=== PATIENT | female | born 1955 | race Two or more races ===

== ENCOUNTER 2018-11-14 14:54 | Emergency (ER) | payer MEDICAID ==
[~2018-11-14] VITALS: Ht 154.9 cm; Wt 64.0 kg
[2018-11-14 15:22] VITALS: BP 143/62
== END 2018-11-14 20:42 | disposition home or self-care (01) ==
LOC: EDBD 14:54 → ER 14:54
DX: R51 Headache (principal); R09.81 Nasal congestion; E11.9 Type 2 diabetes mellitus without complications; E78.5 Hyperlipidemia, unspecified
CPT/HCPCS: 70450

== ENCOUNTER 2024-02-17 10:30 | Inpatient (IN) | payer MEDICAID ==
[~2024-02-17] VITALS: Ht 157.5 cm; Wt 65.5 kg
--- NOTE | 2024-02-17 10:50 | ED.PDOC ---
HPI Comments This is a 68-year-old female who comes in with chief complaint of chest pain. The patient states that she was at rest yesterday and developed some pressure- like chest pain that was substernal in nature. She denies any radiation of the pain. The patient was complaining of some shortness for breath as well as nausea. There has been no vomiting or diarrhea. The patient was also having some dizziness and some mild right-sided abdominal pain with the chest pain. Patient has no other complaints at this time. Chief Complaint: Chest Pain Time Seen by MD: 10:31 Reviewed Notes: Nurses Notes, Medications, Allergies (Allergies to penicillin) Allergies: Coded Allergies: Penicillins (Verified Allergy, Unknown, 11/14/18) Uncoded Allergies: PENIC (Allergy, Unknown, 11/14/18) Information Source: Patient Mode of Arrival: Ambulatory Severity: Moderate Timing: Days Duration: Since onset Prehospital treatment: None Location: Substernal Radiation: No Radiation Quality: Squeezing, Pressure Onset: At Rest Cardiac Risk Factors: Family History, Hyperlipidemia, HTN, Diabetes PE Risk Factors: None History of: None Modifying Factors: Nothing Associated Signs and Symptoms: SOB, N/V (Nausea but no vomiting) Past Medical History PAST MEDICAL HISTORY: DM, High Lipids, HTN Surgical History: Cholecystectomy ANIMAL THERAPIST History: No Pertinent ANIMAL THERAPIST History Family History Family History: Family hx of heart margaret Social History Smoker: Non-Smoker Alcohol: Denies ETOH Use Drugs: Denies Drug Use Lives In: Home Constitutional: denies: chills, diaphoresis, fatigue, fever, malaise, sweats, weakness, others EENTM: denies: blurred vision, double vision, ear bleeding, ear discharge, ear drainage, ear pain, ear ringing, eye pain, eye redness, hearing loss, mouth pain, mouth swelling, nasal discharge, nose bleeding, nose congestion, nose pain, photophobia, tearing, throat pain, throat swelling, voice changes, others Respiratory: reports: shortness of breath; denies: cough, hemoptysis, orthopnea, SOB at rest, SOB with excertion, stridor, wheezing, others Cardiovascular: reports: chest pain; denies: dizzy spells, diaphoresis, Dyspnea on exertion, edema, irregular heart beat, left arm pain, lightheadedness, palpitations, PND, syncope, others Gastrointestinal: reports: nausea; denies: abdomen distended, abdominal pain, blood streaked bowels, constipated, diarrhea, dysphagia, difficulty swallowing, hematemesis, melena, poor appetite, poor fluid intake, rectal bleeding, rectal pain, vomiting, others Genitourinary: denies: abnormal vagina bleeding, burning, dyspareunia, dysuria, flank pain, frequency, hematuria, incontinence, pain, , vagina discharge, urgency, others Neurological: reports: dizziness; denies: fainting, headache, left sided numbness, left sided weakness, numbness, paresthesia, pre-existing deficit, right sided numbness, right sided weakness, seizure, speech problems, tingling, tremors, weakness, others Musculoskeletal: denies: back pain, gout, joint pain, joint swelling, muscle pain, muscle stiffness, neck pain, others Integumetry: denies: bruises, change in color, change in hair/nails, dryness, laceration, lesions, lumps, rash, wounds, others Allergic/Immunocompromised: denies: Difficulty Healing, Frequent Infections, H gagandeep, Itching, others Hematologic/Lymphatic: denies: anemia, blood clots, easy bleeding, easy bruising, swollen glands, others Endocrine: denies: excessive hunger, excessive sweating, excessive thirst, excessive urination, flushing, intolerance to cold, intolerance to heat, unexplained weight gain, unexplained weight loss, others Psychiatric: denies: anxiety, bipolar disorder, depression, hopeless, panic disorder, schizophrenia, sleepless, suicidal, others Physical Exam General Appearance: No Apparent Distress HEENT: Normal ENT Inspection, Pharynx Normal, TMs Normal Neck: Full Range of Motion, Non-Tender, Normal, Normal Inspection Respiratory: Chest Non-Tender, Lungs Clear, No Accessory Muscle Use, No Respiratory Distress, Normal Breath Sounds Cardiovascular: No Edema, No JVD, No Murmur, No Gallop, Normal Peripheral Pulses, Regular Rate/Rhythm Breast Exam: Deferred Gastrointestinal: No Organomegaly, Non Tender, No Pulsatile Mass, Normal Bowel Sounds, Soft Genitalia: Deferred Pelvic: Deferred Rectal: Deferred Extremities: No calf tenderness, Normal capillary refill, Normal inspection, Normal range of motion, Non-tender, No pedal edema Musculoskeletal : Apperance: Normal Neurologic: Alert, panelboard assembler II-XII nml as Tested, No Motor Deficits, Normal Affect, Normal Mood, No Sensory Deficits Cerebellar Function: Normal Reflexes: Normal Skin: Dry, Normal Color, Warm Lymphatic: No Adenopathy EKG EKG : Pulse Rate (adult): 55 Cardiac Rhythm: NSR Block: None ST: Nonsp (Low voltage) Was a procedure done? Was a procedure done?: No CP Differential Dx Differential Diagnosis: Angina, [place], Pulmonary Embolus Differential Diagnosis: CHF Differential Diagnosis: Pericarditis X-Ray, Labs, Meds, VS Vital Signs Date Time Temp Pulse Resp B/P (MAP) Pulse Ox O2 Delivery O2 Flow Rate FiO2 02/17/24 15:41 98.3 59 17 149/258 (222) 100 98.3 02/17/24 11:48 61 02/17/24 11:48 98.4 61 17 150/59 (89) 99 98.4 02/17/24 11:35 58 02/17/24 10:51 55 02/17/24 10:50 86 02/17/24 10:33 97.3 50 17 181/53 (95) 100 Lab Test 02/17/24 13:58 02/17/24 11:59 02/17/24 11:51 02/17/24 10:38 Range/Units Troponin I High Sensitivity 6 4 5 </=34 ng/L Urine Color Light-yellow Yellow Urine Clarity Clear Clear Urine pH 7.5 5.0-9.0 Urine Specific [place] 1.009 1.001-1.035 Urine Protein Negative Negative Urine Ketones Negative Negative Urine Blood 1+ H Negative /uL Urine Nitrite Negative Negative Urine Bilirubin Negative Negative Urine Urobilinogen Normal Negative mg/dL Urine Leukocyte Esterase 3+ Negative /uL Urine RBC 12 0 - 4 /hpf Urine WBC 7 0 - 5 /hpf Urine Squamous Epithelial Cells Few <5 /hpf Urine Bacteria Few H None Seen /hpf Urine Glucose Normal Normal mg/dL White Blood Count 4.5 4.4-10.8 10^3/uL Red Blood Count 3.84 L 4.0-5.20 10^6/uL Hemoglobin 12.6 12.2-16.2 g/dL Hematocrit 37.0 36.0-46.0 % Mean Corpuscular Volume 96.4 80.0-100.0 fL Mean Corpuscular Hemoglobin 32.9 H 28.0-32.0 pg Mean Corpuscular Hemoglobin Concent 34.2 32.0-36.0 g/dL Red Cell Distribution Width 13.2 11.8-14.3 % Platelet Count 249 140-450 10^3/uL Mean Platelet Volume 7.5 6.9-10.8 fL Neutrophils (%) (Auto) 46.0 37.0-80.0 % Lymphocytes (%) (Auto) 44.8 10.0-50.0 % Monocytes (%) (Auto) 5.6 0.0-12.0 % Eosinophils (%) (Auto) 2.8 0.0-7.0 % Basophils (%) (Auto) 0.8 0.0-2.0 % Neutrophils # (Auto) 2.1 1.6-8.6 10 ^3/uL Lymphocytes # (Auto) 2.0 0.4-5.4 10 ^3/uL Monocytes # (Auto) 0.3 0-1.3 10 ^3/uL Eosinophils # (Auto) 0.1 0-0.8 10 ^3/uL Basophils # (Auto) 0 0-0.2 10 ^3/uL Nucleated Red Blood Cells 0.1 % Sodium Level 144 136-145 mmol/L Potassium Level 4.1 3.5-5.1 mmol/L Chloride Level 107 98-107 mmol/L Carbon Dioxide Level 29 20-31 mmol/L Anion Gap 8 5-15 Blood Urea Nitrogen 15 9-23 mg/dL Creatinine 0.79 0.550-1.02 mg/dL Glomerular Filtration Rate Calc 80 >90 mL/min BUN/Creatinine Ratio 19.0 10.0-20.0 Serum Glucose 96 74-106 mg/dL Calcium Level 10.4 8.7-10.4 mg/dL Magnesium Level 2.2 1.6-2.6 mg/dL Total Bilirubin 0.6 0.2-1.0 mg/dL Aspartate Amino Transferase (AST) 23 13-40 U/L Alanine Aminotransferase (ALT) 24 7-40 U/L Alkaline Phosphatase 82 46-116 U/L Total Protein 7.1 5.7-8.2 g/dL Albumin 4.6 3.2-4.8 g/dL Current Medications Medications (Trade) Dose Ordered Sig/Ronnie Route Start Time Stop Time Status Last Admin Aspirin 162 mg ONCE ONCE PO 02/17/24 10:45 02/17/24 10:46 DC 02/17/24 11:46 Levofloxacin 50 ml @ 50 mls/hr Q1H IV 02/17/24 16:00 02/17/24 17:59 02/17/24 16:05 The patient's CBC is within normal limits The chemistry panel is within normal limits. The urine test is positive for UTI The patient was given aspirin for the chest pain The patient was also given Levaquin for the UTI The patient was being admitted to the hospitalist at this time Images Reviewed?: Images reviewed and evaluated by me Time of 1ST Reevaluation: 10:50 Reevaluation 1ST: Unchanged Patient Education/Counseling: Diagnosis, Treatment, Prognosis Family Education/Counseling: No Family Present Departure 1 Departure Time of Disposition: 17:37 Impression: Primary Impression: Acute myocardial ischemia Additional Impression: UTI (urinary tract infection) Qualified Codes: N30.00 - Acute cystitis without hematuria Disposition: 09 ADMITTED INPATIENT Admit to: [facility] Condition: Fair Critical Care Note Critical Care Time?: Yes (35 min-critical care time only) Stability Stability form required: Yes Unstable for transfer: Telemetry monitoring (Telemetry monitoring required), ED Physician Assesment (Clinical assesment) Heart Score Heart Score: Heart Score Response (Comments) Value History Moderate Suspicious 1 EKG Normal 0 Age >65 2 Risk Factors >3 or Hx ASHD 2 Troponin Normal limit 0 Total 5 ESME ELI MD Feb 17, 2024 10:50
[2024-02-17 11:03] LABS: Basophils # (auto) 0 10 ^3/uL (0-0.2); Basophils % (auto) 0.8 % (0.0-2.0); Eosinophils # (auto) 0.1 10 ^3/uL (0-0.8); Eosinophils % (auto) 2.8 % (0.0-7.0); Hemoglobin 12.6 g/dL (12.2-16.2); Lymphocytes % (auto) 44.8 % (10.0-50.0); Mean Corpuscular Hemoglobin 32.9 pg (28.0-32.0); Mean Corpuscular Hgb Conc. 34.2 g/dL (32.0-36.0); Mean Corpuscular Volume 96.4 fL (80.0-100.0); Monocytes # (auto) 0.3 10 ^3/uL (0-1.3); Monocytes % (auto) 5.6 % (0.0-12.0); Neutrophils # (auto) 2.1 10 ^3/uL (1.6-8.6); Nucleated Red Blood Cells % 0.1 %; Platelet Count (auto) 249 10^3/uL (140-450); Red Blood Cells 3.84 10^6/uL (4.0-5.20); Red Cell Distribution Width 13.2 % (11.8-14.3); White Blood Cell 4.5 10^3/uL (4.4-10.8)
[2024-02-17 11:25] LABS: Alanine Aminotransferase 24 U/L (7-40); Albumin 4.6 g/dL (3.2-4.8); Alkaline Phosphatase 82 U/L (46-116); Anion Gap 8 (5-15); Aspartate Aminotransferase 23 U/L (13-40); Blood Urea Nitrogen 15 mg/dL (9-23); Carbon Dioxide 29 mmol/L (20-31); Chloride 107 mmol/L (98-107); Glucose 96 mg/dL (74-106); Magnesium 2.2 mg/dL (1.6-2.6); Potassium 4.1 mmol/L (3.5-5.1); Sodium 144 mmol/L (136-145)
[2024-02-17 11:26] LABS: Bilirubin, Total 0.6 mg/dL (0.2-1.0); Total Protein 7.1 g/dL (5.7-8.2)
[2024-02-17 11:40] LABS: Calcium 10.4 mg/dL (8.7-10.4)
[2024-02-17] MEDS: ASPirin 81 mg TAB PO ONE (11:46)
[2024-02-17 12:45] LABS: Urine Bacteria FEW /hpf (None Seen); Urine Blood 1+ /uL (Negative); Urine Clarity Clear (Clear); Urine Color Light-Yellow (Yellow); Urine Protein, UAD Negative (Negative); Urine Specific Gravity 1.009 (1.001-1.035); Urine Squamous Epithelial Cell FEW /hpf (<5); Urine Urobilinogen Normal (Negative); Urine WBC 7 /hpf (0 - 5); Urine pH 7.5 (5.0-9.0)
--- NOTE | 2024-02-17 12:55 | DVH ---
EXAM: XY CHEST PORTABLE Indication: CHEST PAIN Technique: Single frontal view of the chest was obtained Comparison: None FINDINGS: Lines and Tubes: None Lungs: No focal consolidation. Pleura: No effusion. No pneumothorax. Cardiomediastinal contours: Unremarkable Bones: No acute osseous abnormality. IMPRESSION: No acute cardiopulmonary disease.
[2024-02-17] MEDS ORDERED: levoFLOXacin 500MG 100 ML IV ONE (14:15)
[2024-02-17] MEDS: levoFLOXacin 250MG 50 ML IV SCH (16:05)
--- NOTE | 2024-02-17 17:59 | DVHHP2 ---
History of Present Illness Reason for Visit: Chest pain History of Present Illness 68-year-old female with a known history of diabetes mellitus type 2, diet controlled, hypertension, dyslipidemia who initially presented to the hospital with chest pain which is substernal squeezing type without any ideation. Patient's troponins were negative. Patient denies any previous history of known coronary artery disease. Patient's denies any fever cough or phlegm. Cardiovascular: HTN, hyperipidemia Endocrine: Diabetes Past Surgical History: Cholecystectomy Family History: None Smoke: No ALCOHOL: none Review of Systems Review of Systems Twelve review of system are negative besides mentioned above. Allergies: Coded Allergies: Penicillins (Verified Allergy, Unknown, 11/14/18) Uncoded Allergies: PENIC (Allergy, Unknown, 11/14/18) Medications Current Medications Medications Dose Ordered Sig/Ronnie Route Start Time Stop Time Status Last Admin Dose Admin Levofloxacin 50 ml @ 50 mls/hr Q1H IV 02/17/24 16:00 02/17/24 17:59 02/17/24 16:05 50 MLS/HR Sodium Chloride 1,000 ml @ 60 mls/hr [id number] IV 02/17/24 18:00 UNV Acetaminophen/ Hydrocodone Bitart 1 tab Q4HP PRN PO 02/17/24 18:00 UNV Ondansetron HCl 4 mg Q4HP PRN IV 02/17/24 18:00 UNV Docusate Sodium 100 mg BIDPRN PRN PO 02/17/24 18:00 UNV Enoxaparin Sodium 40 mg DAILY SC 02/18/24 10:00 UNV Acetaminophen 650 mg Q6HP PRN PO 02/17/24 18:00 UNV Morphine Sulfate 2 mg Q4HPRN PRN IV 02/17/24 18:00 UNV Nitroglycerin 0.4 mg Q5MINP PRN SL 02/17/24 18:00 UNV Morphine Sulfate 2 mg Q30M PRN IV 02/17/24 18:00 UNV Exam Vital Signs Vital Signs Date Time Temp Pulse Resp B/P (MAP) Pulse Ox O2 Delivery O2 Flow Rate FiO2 02/17/24 15:41 98.3 59 17 149/258 (222) 100 98.3 Exam HEENT pupils are reactive Neck is supple CV is S1-S2 regular rate and rhythm Respiratory diminished breath sounds bases GI positive bowel sound Extremity no edema DRAFTER DETAIL no motor deficit Labs/Xrays Labs Test 02/17/24 13:58 02/17/24 11:51 02/17/24 10:38 Range/Units Troponin I High Sensitivity 6 </=34 ng/L Urine Color Light-yellow Yellow Urine Clarity Clear Clear Urine pH 7.5 5.0-9.0 Urine Specific [place] 1.009 1.001-1.035 Urine Protein Negative Negative Urine Ketones Negative Negative Urine Blood 1+ H Negative /uL Urine Nitrite Negative Negative Urine Bilirubin Negative Negative Urine Urobilinogen Normal Negative mg/dL Urine Leukocyte Esterase 3+ Negative /uL Urine RBC 12 0 - 4 /hpf Urine WBC 7 0 - 5 /hpf Urine Squamous Epithelial Cells Few <5 /hpf Urine Bacteria Few H None Seen /hpf Urine Glucose Normal Normal mg/dL White Blood Count 4.5 4.4-10.8 10^3/uL Red Blood Count 3.84 L 4.0-5.20 10^6/uL Hemoglobin 12.6 12.2-16.2 g/dL Hematocrit 37.0 36.0-46.0 % Mean Corpuscular Volume 96.4 80.0-100.0 fL Mean Corpuscular Hemoglobin 32.9 H 28.0-32.0 pg Mean Corpuscular Hemoglobin Concent 34.2 32.0-36.0 g/dL Red Cell Distribution Width 13.2 11.8-14.3 % Platelet Count 249 140-450 10^3/uL Mean Platelet Volume 7.5 6.9-10.8 fL Neutrophils (%) (Auto) 46.0 37.0-80.0 % Lymphocytes (%) (Auto) 44.8 10.0-50.0 % Monocytes (%) (Auto) 5.6 0.0-12.0 % Eosinophils (%) (Auto) 2.8 0.0-7.0 % Basophils (%) (Auto) 0.8 0.0-2.0 % Neutrophils # (Auto) 2.1 1.6-8.6 10 ^3/uL Lymphocytes # (Auto) 2.0 0.4-5.4 10 ^3/uL Monocytes # (Auto) 0.3 0-1.3 10 ^3/uL Eosinophils # (Auto) 0.1 0-0.8 10 ^3/uL Basophils # (Auto) 0 0-0.2 10 ^3/uL Nucleated Red Blood Cells 0.1 % Sodium Level 144 136-145 mmol/L Potassium Level 4.1 3.5-5.1 mmol/L Chloride Level 107 98-107 mmol/L Carbon Dioxide Level 29 20-31 mmol/L Anion Gap 8 5-15 Blood Urea Nitrogen 15 9-23 mg/dL Creatinine 0.79 0.550-1.02 mg/dL Glomerular Filtration Rate Calc 80 >90 mL/min BUN/Creatinine Ratio 19.0 10.0-20.0 Serum Glucose 96 74-106 mg/dL Calcium Level 10.4 8.7-10.4 mg/dL Magnesium Level 2.2 1.6-2.6 mg/dL Total Bilirubin 0.6 0.2-1.0 mg/dL Aspartate Amino Transferase (AST) 23 13-40 U/L Alanine Aminotransferase (ALT) 24 7-40 U/L Alkaline Phosphatase 82 46-116 U/L Total Protein 7.1 5.7-8.2 g/dL Albumin 4.6 3.2-4.8 g/dL Assessment/Plan Assessment/Plan 68-year-old female with a known history of diabetes mellitus type 2, diet controlled, hypertension, dyslipidemia initially admitted to the hospital with chest pain found to have 1. Chest pain rule out [place] 2. Diabetes mellitus type 2 diet controlled 3. Hypertension 4. Dyslipidemia Plan tele admission, check troponins x3, 2D echo cardiology consultation. -Accu-Chek Q a.c. and HS low-dose sliding scale. Keep NPO after midnight just in case patient needs stress test Plan discussed with: Patient My Orders Orders - BETY CALDERON MD Procedure Category Date Status Time Admit ADMIT 02/17/24 Transmitted 17:51 Code Status CODE 02/17/24 Transmitted 17:51 2 Gm Sodium Diet DIET 02/17/24 Transmitted Dinner Sodium Chloride 0.9% PHA 02/17/24 Logged 18:00 Hydrocodone-Acet PHA 02/17/24 Logged 5/325mg Tab (Rochelle 18:00 Ondansetron Hcl PHA 02/17/24 Logged (Zofran) 18:00 Docusate Sodium PHA 02/17/24 Logged Capsule (Colace 18:00 Enoxaparin Sodium PHA 02/18/24 Logged (Lovenox) 10:00 Echo 2d Mode Cardiac US 02/17/24 Logged DOP 17:51 Condition: Fair [facility] 02/17/24 In Process 17:51 Acetaminophen Tablet PHA 02/17/24 Logged (Tylenol Tablet) 18:00 Morphine Sulfate [facility] 02/17/24 Logged Injection 18:00 Nitroglycerin [facility] 02/17/24 Logged Sublingual (Ntrostat 18:00 Morphine Sulfate PHA 02/17/24 Logged Injection 18:00 Stat Ekg For Chest [facility] 02/17/24 In Process Pain 17:51 Notify Of Changes [facility] 02/17/24 In Process From Base 17:51 Telemarketing Agent For [facility] 02/17/24 In Process 24 Hours 17:51 Emergency Dysrhythmia [facility] 02/17/24 In Process Protocol 17:51 Rhythm Strips Once [facility] 02/17/24 In Process Every Shift 17:51 Oxygen By Nasal RT 02/17/24 Transmitted Cannula 17:51 * Cardiology Consult CONS 02/17/24 Transmitted 17:55 Date of Service: Feb 17, 2024 Billing Provider: BETY CALDERON MD Common Visit Codes: NOT BILLABLE BETY CALDERON MD Feb 17, 2024 17:59
[2024-02-17] MEDS ORDERED: DOCUSATE SOD 100 MG CAP PO PRN (18:00)
[2024-02-17] MEDS ORDERED: NITROGLYCERIN 0.4 MG SL TAB SL PRN (18:00)
[2024-02-17] MEDS ORDERED: ONDANSETRON HCL 4 MG/2 ML VIAL IV PRN (18:00)
[2024-02-17] MEDS ORDERED: HYDROcodone-ACET 5/325MG TAB PO PRN (18:00)
[2024-02-17] MEDS ORDERED: MORPHINE SULFATE INJ 2 MG/ml SYRG IV PRN ×2 (18:00)
[2024-02-17] MEDS ORDERED: ACETAMINOPHEN 325 MG TAB PO PRN (18:00)
[2024-02-17] MEDS: SODIUM CHLORIDE 0.9% 1,000 ML IV SCH (19:07)
[2024-02-17] MEDS ORDERED: SIMV20TA20 PO (21:04)
[2024-02-17 21:45] VITALS: BP 155/48; PULSE 65; RESP 17; TEMP 98.2; O2SAT 98
[2024-02-17 21:52] VITALS: PULSE 67
[2024-02-18 01:00] VITALS: BP 146/53; PULSE 63; RESP 17; TEMP 98.4; O2SAT 98
[2024-02-18 05:00] VITALS: BP 143/68; PULSE 59; RESP 18; TEMP 98.1; O2SAT 98
[2024-02-18 08:00] VITALS: PULSE 65
[2024-02-18 08:33] VITALS: BP 119/69; PULSE 60; RESP 16; TEMP 97.7; O2SAT 93
[2024-02-18] MEDS: ENOXAPARIN SOD 40 MG/0.4 ML SYRINGE SC SCH (09:36)
--- NOTE | 2024-02-18 12:39 | DVHSR ---
APPROVED REPORT EXAM: Two-dimensional and M-mode echocardiogram with Doppler and color Doppler. Blood Pressure: 143/68 mmHg INDICATION Chest Pain RISK FACTORS Height: 5' 2", Weight: 144 DIMENSIONS LVDd4.9 (3.8-5.7cm)LA (2D)3.4 (1.9-4.0cm)Aortic Root2.9 (2.0-3.7cm) LVDs3.5 (2.5-4.0cm)LA (MM) (1.9-4.0cm)Aortic Cusp Exc1.9 (1.5-2.0cm) EF (%) 55.0 (55-70%)Rt. Atrium3.6 (1.9-4.0cm)Asc. Aorta cm IVSd1.1 (0.7-1.1cm)RV (D) (1.8-2.4cm) PWd1.0 (0.7-1.1cm) Mitral Valve MitralMitral Stenosis E wave0.60m/sMV Mean GR.mmHg A wave0.80m/sMV Peak GR.mmHg E/A ratio0.82D MVAcm2 Aortic Valve Aortic ValveAortic Stenosis V10.80m/Gio Mean GR.3mmHg V21.30m/Gio Peak GR.7mmHg LVOT Diameter2.2 (1.8-2.4cm)Doppler AVA2.34cm2 AI P 1/2 [id number] Pulmonic Valve V20.80m/s Tricuspid Valve TR Velocity2.40m/s [id number] Conclusion Normal left ventricular size and dimension. Normal left ventricular systolic function estimated ejec tion fraction 55%. There is a grade 1 diastolic dysfunction. Normal right ventricular size and dimension. Normal right ventricular systolic function. Slightly i ncreased right ventricular systolic pressure at 29 mm of mercury Mildly dilated right and left atria. The aortic valve is mildly thickened and sclerotic there is mild aortic valve regurgitation. Normal mitral valve structure and function. Normal tricuspid valve structure and function. The pulmonary valve is grossly normal. No significant pericardial effusion.
[2024-02-18 13:16] VITALS: BP 154/60; PULSE 65; RESP 19; TEMP 98.2; O2SAT 98
--- NOTE | 2024-02-18 15:48 | DVHDS2 ---
Discharge Summary Date of Admission Feb 17, 2024 at 17:51 Date of Discharge: Feb 18, 2024 Labs/Diagnostic Data: Laboratory Results Test 02/17/24 13:58 02/17/24 11:51 02/17/24 10:38 Troponin I High Sensitivity 6 ng/L (</=34) Urine Color Light-yellow (Yellow) Urine Clarity Clear (Clear) Urine pH 7.5 (5.0-9.0) Urine Specific [place] 1.009 (1.001-1.035) Urine Protein Negative (Negative) Urine Ketones Negative (Negative) Urine Blood 1+ /uL (Negative) Urine Nitrite Negative (Negative) Urine Bilirubin Negative (Negative) Urine Urobilinogen Normal mg/dL (Negative) Urine Leukocyte Esterase 3+ /uL (Negative) Urine RBC 12 /hpf (0 - 4) Urine WBC 7 /hpf (0 - 5) Urine Squamous Epithelial Cells Few /hpf (<5) Urine Bacteria Few /hpf (None Seen) Urine Glucose Normal mg/dL (Normal) White Blood Count 4.5 10^3/uL (4.4-10.8) Red Blood Count 3.84 10^6/uL (4.0-5.20) Hemoglobin 12.6 g/dL (12.2-16.2) Hematocrit 37.0 % (36.0-46.0) Mean Corpuscular Volume 96.4 fL (80.0-100.0) Mean Corpuscular Hemoglobin 32.9 pg (28.0-32.0) Mean Corpuscular Hemoglobin Concent 34.2 g/dL (32.0-36.0) Red Cell Distribution Width 13.2 % (11.8-14.3) Platelet Count 249 10^3/uL (140-450) Mean Platelet Volume 7.5 fL (6.9-10.8) Neutrophils (%) (Auto) 46.0 % (37.0-80.0) Lymphocytes (%) (Auto) 44.8 % (10.0-50.0) Monocytes (%) (Auto) 5.6 % (0.0-12.0) Eosinophils (%) (Auto) 2.8 % (0.0-7.0) Basophils (%) (Auto) 0.8 % (0.0-2.0) Neutrophils # (Auto) 2.1 10 ^3/uL (1.6-8.6) Lymphocytes # (Auto) 2.0 10 ^3/uL (0.4-5.4) Monocytes # (Auto) 0.3 10 ^3/uL (0-1.3) Eosinophils # (Auto) 0.1 10 ^3/uL (0-0.8) Basophils # (Auto) 0 10 ^3/uL (0-0.2) Nucleated Red Blood Cells 0.1 % Sodium Level 144 mmol/L (136-145) Potassium Level 4.1 mmol/L (3.5-5.1) Chloride Level 107 mmol/L (98-107) Carbon Dioxide Level 29 mmol/L (20-31) Anion Gap 8 (5-15) Blood Urea Nitrogen 15 mg/dL (9-23) Creatinine 0.79 mg/dL (0.550-1.02) Glomerular Filtration Rate Calc 80 mL/min (>90) BUN/Creatinine Ratio 19.0 (10.0-20.0) Serum Glucose 96 mg/dL (74-106) Calcium Level 10.4 mg/dL (8.7-10.4) Magnesium Level 2.2 mg/dL (1.6-2.6) Total Bilirubin 0.6 mg/dL (0.2-1.0) Aspartate Amino Transferase (AST) 23 U/L (13-40) Alanine Aminotransferase (ALT) 24 U/L (7-40) Alkaline Phosphatase 82 U/L (46-116) Total Protein 7.1 g/dL (5.7-8.2) Albumin 4.6 g/dL (3.2-4.8) Other Laboratory Tests 02/17/24 10:38 Brief Hx & Hospital Course: 68-YEAR-OLD FEMALE WITH A KNOWN HISTORY OF DIABETES MELLITUS TYPE 2, DIET CONTROLLED, HYPERTENSION, DYSLIPIDEMIA INITIALLY ADMITTED TO THE HOSPITAL WITH CHEST PAIN WHICH WAS SHARP PAIN. PATIENT'S TROPONINS WERE NEGATIVE. PATIENT WAS SEEN BY CARDIOLOGY CURRENTLY CLEARED TO BE DISCHARGED. PATIENT DENIES ANY CHEST PAIN AND CURRENTLY STABLE TO BE DISCHARGED WITH A CLOSE FOLLOW UP AN OUTPATIENT WITH THE PCP AND CARDIOLOGY. Condition at Discharge: Stable Final Diagnosis/Problems List 1.CHEST PAIN PR RULED OUT 2. HYPERTENSION. 3. DYSLIPIDEMIA 4. DIABETES MELLITUS TYPE 2 DIET CONTROLLED Discharge Disposition: Home SNF Discharge Will this Physician continue t: No Discharge Instruct/Medications Diet: Cardiac 2g Na,low cholest Activity: No Restrictions, As Tolerated Follow Up/Referral: FOLLOW UP WITH THE PCP IN 1-[address] W[address]LLOW UP WITH DR. ABREU IN 1-2 WEEKS Medications: RESUME HOME MEDICATIONS Discharge Statement: "Patient was advised to return to the ER or call 911 if any headaches, dizziness, shortness of breath, chest pain, abdominal pain, bleeding, fevers, or worsening of medical condition. Patient was counseled about treatment plan, medications, possible side effects, patientverbalized understanding. All questions were answered to the best of my ability. This discharge took greater then 30 minutes in planning, reviewing documentation, counseling the patient, and discussing with other team members." ASSESSMENT ASSESSMENT Assessment 1.CHEST PAIN PR RULED OUT 2. HYPERTENSION1. 3. DYSLIPIDEMIA Date of Service: Feb 18, 2024 Billing Provider: BETY CALDERON MD Common Visit Codes: NOT BILLABLE BETY CALDERON MD Feb 18, 2024 15:48
[2024-02-18 16:34] VITALS: BP 102/42; PULSE 60; RESP 17; TEMP 98; O2SAT 97
[2024-02-18] MEDS: INFLUENZA TRIVALENT 2024-2025 0.5 ML INJ IM ONE (16:44)
--- NOTE | 2024-02-18 22:21 | DVHINCON2 ---
DATE OF CONSULTATION: 02/18/2024 REFERRING PHYSICIAN: Dr. Teresa. CONSULTING PHYSICIAN: Dr. Delatorre. INDICATION: Chest pain. HISTORY OF PRESENT ILLNESS: The patient is a 68-year-old female with a history of hypertension, dyslipidemia, presented to the hospital with complaint of chest pain, described the pain as dull, no radiation. At that time, [place] has been ruled out with serial negative troponin. The patient denies any prior history of heart disease known to her. PAST MEDICAL HISTORY: * Hypertension. * Dyslipidemia. MEDICATIONS: Per med rec. ALLERGIES: PENICILLIN. PHYSICAL EXAMINATION: GENERAL: Alert and awake, in no form of acute cardiopulmonary distress. VITAL SIGNS: Blood pressure 119/69, pulse 60 per minute, saturation 93%. HEENT: No carotid bruits. No jugular venous distention. CHEST: Bilateral air entry. CARDIOVASCULAR: Submucosal and palpable. Normal S1, S2. Regular rate and rhythm. No appreciable gallop or rubs. EXTREMITIES: No peripheral edema. DIAGNOSTIC DATA: Troponin negative x3. Sodium 144, potassium 4.9, creatinine 0.79. CBC is normal. ASSESSMENT: * Chest pain, atypical mass, myocardial infarction ruled out, serial negative troponin, doubt acute coronary syndrome. * Hypertension. * Dyslipidemia. RECOMMENDATIONS: * Continue aspirin for now. * If echo shows preserved LV systolic function with no significant wall motion abnormality. * No indication for further cardiac workup. * The patient will be discharged home with outpatient followup. Thank you for allowing me to participate in the care of this patient. MD MARISOL Womack/KATHLEEN TID: [id number] RECEIPT: [id number]
--- NOTE | 2024-02-20 05:09 | ECG ---
[facility] Test Date: 2024-02-17 Test Time: 10:35:40 Pat Name: ANKUR PEREZ [facility] F Nut Process Helper: NILA : 1955 Requested By: ESME ELI Order Number: [id number] Reading MD: Amari Arellano Measurements Intervals [place] Rate: 55 P: 40 MN: 161 QRS: 20 QRSD: 89 T: 59 QT: 464 QTc: 444 Interpretive Statements Sinus rhythm RSR' in V1 or V2, probably normal variant Electronically Signed On 02-20-2024 14:09:28 PST by Amari Arellano Please click the below link to view image of tracing.
--- NOTE | 2024-02-20 05:09 | ECG ---
[facility] Test Date: 2024-02-17 Test Time: 11:37:00 Pat Name: ANKUR PEREZ [facility] Cable Swager: PARUL : 1955 Requested By: ESME ELI Order Number: [id number] Reading MD: Amari Arellano Measurements Intervals [place] Rate: 58 P: 48 ID: [id number] QRS: 23 QRSD: 83 T: 59 QT: 431 QTc: 424 Interpretive Statements Sinus rhythm RSR' in V1 or V2, probably normal variant Electronically Signed On 02-20-2024 14:09:38 PST by Amari Arellano Please click the below link to view image of tracing.
== END 2024-02-18 16:59 | disposition home or self-care (01) | DRG 203 ==
LOC: ER 10:30 → TELE 17:51 → TELE-WESTW 21:41
PROVIDERS: ADMIT Internal Medicine; ATTEND Internal Medicine
DX: M94.0 Chondrocostal junction syndrome [Tietze] (principal); E11.9 Type 2 diabetes mellitus without complications; E78.5 Hyperlipidemia, unspecified; I10 Essential (primary) hypertension; N39.0 Urinary tract infection, site not specified; Z88.0 Allergy status to penicillin; Z90.49 Acquired absence of other specified parts of digestive tract; Z79.899 Other long term (current) drug therapy
CPT/HCPCS: 36415; 71045; 80053; 81001; 83735; 84484; 85025; 90656; 93005; 93306; 96365; 96372; 99291; G0378